=== PATIENT | female | born 1995 | race Caucasian/White ===

== ENCOUNTER → 2023-02-28 | Outpatient (CLI) | payer MEDICAID, SELFPAY ==
[2023-02-28 13:03] LABS: Absolute Lymphocyte Count 1.67 X10^3/uL (0.83-4.51); Absolute Neutrophil Count 5.4 X10^3/uL (2.0-7.7); Basophil# 0.02 X10^3/uL; Basophil% 0.3 % (0-1); Eosinophil# 0.12 X10^3/uL; Eosinophils% 1.6 % (0-5); Hematocrit 33.5 % (37-47); Hemoglobin 10.8 g/dL (12.0-15.0); Lymphocyte # 1.67 X10^3/ul (0.83-4.51); Lymphocyte % 21.9 % (19-41); Mean Corp Hgb Conc 32.2 g/dL (32-36); Mean Corpuscular Hgb 27.1 pg (27.0-32.0); Mean Platelet Vol. 9.5 fl (6.2-12.0); Monocyte# 0.39 X10^3/uL; Monocyte% 5.1 % (0-10); NRBC Flagged by Analyzer 0 % (0-5); Neutrophil # 5.39 X10^3/uL (2.7-7.7); Neutrophil % 70.7 % (47-70); Platelet Count 343 K/mm3 (150-450); RBC Distribution Width CV 13.6 % (11.6-14.6); RBC Distribution Width SD 42.1 fl (35.1-43.9); Red Blood Count 3.99 M/mm3 (4.2-5.4); White Blood Count 7.6 K/mm3 (4.4-11.0)
[2023-02-28 14:20] LABS: HIV - WCH Non-Reactive (Nonreactive); Hepatitis B Surface Antigen Non-Reactive (Nonreactive); Hepatitis C Antibody Non-Reactive (Nonreactive); Rubella IgG Reactive (Nonreactive); Syphilis Antibodies Reactive
[2023-03-01 08:32] LABS: V-Zoster IgG (Immunity) 917 index (Immune >165)
[2023-03-06 17:19] LABS: HPV Reflexed? NOT INDICATED
== END | disposition home or self-care (01) ==
PROVIDERS: PCP Pediatrics; Visit Provider Obstetrics & Gynecology
DX: Z34.82 Encounter for supervision of other normal pregnancy, second trimester (principal); A53.9 Syphilis, unspecified
CPT/HCPCS: 36415; 85025; 86703; 86762; 86780; 86787; 86803; 87086; 87088; 87340; 88175; G0145

== ENCOUNTER 2023-03-10 14:59 | Outpatient (CLI) | payer MEDICAID, SELFPAY ==
[2023-03-10 15:08] VITALS: BP 103/64; PULSE 81; RESP 16; TEMP 36.4; O2SAT 97; BMI 35.7
[2023-03-10] MEDS: Penicillin G Benzathine 2.4 MU/4 ML Syringe IM (15:24)
== END 2023-03-10 15:00 | disposition home or self-care (01) ==
PROVIDERS: PCP Pediatrics; Referring Provider Student in an Organized Health Care Education/Training Program; Visit Provider Student in an Organized Health Care Education/Training Program
DX: O98.112 Syphilis complicating pregnancy, second trimester (principal); A53.9 Syphilis, unspecified; Z3A.00 Weeks of gestation of pregnancy not specified
CPT/HCPCS: 96372

== ENCOUNTER 2023-03-21 07:47 | Outpatient (CLI) | payer MEDICAID, SELFPAY ==
[2023-03-21 08:00] VITALS: BP 95/60; PULSE 74; RESP 14; O2SAT 97; BMI 38.5
[2023-03-21] MEDS: Penicillin G Benzathine 2.4 MU/4 ML Syringe IM (08:22)
== END 2023-03-21 07:48 | disposition home or self-care (01) ==
PROVIDERS: PCP Pediatrics; Referring Provider Student in an Organized Health Care Education/Training Program; Visit Provider Student in an Organized Health Care Education/Training Program
DX: O98.112 Syphilis complicating pregnancy, second trimester (principal); A53.9 Syphilis, unspecified; Z3A.00 Weeks of gestation of pregnancy not specified
CPT/HCPCS: 96372

== ENCOUNTER 2023-03-28 10:49 | Outpatient (CLI) | payer MEDICAID, SELFPAY ==
[2023-03-28 11:00] VITALS: BP 106/60; PULSE 85; RESP 16; TEMP 35.5; O2SAT 97; BMI 39.9
[2023-03-28] MEDS: Penicillin G Benzathine 2.4 MU/4 ML Syringe IM (11:06)
== END 2023-03-28 10:50 | disposition home or self-care (01) ==
LOC: MEDOUTP 10:49
PROVIDERS: PCP Pediatrics; Referring Provider Student in an Organized Health Care Education/Training Program; Visit Provider Student in an Organized Health Care Education/Training Program
DX: O98.112 Syphilis complicating pregnancy, second trimester (principal); Z53.9 Procedure and treatment not carried out, unspecified reason; Z3A.00 Weeks of gestation of pregnancy not specified
CPT/HCPCS: 96372

== ENCOUNTER → 2023-05-02 | Outpatient (CLI) | payer MEDICAID, SELFPAY ==
[2023-05-02 14:41] LABS: Hematocrit 31.4 % (37-47); Hemoglobin 9.8 g/dL (12.0-15.0); Mean Corp Hgb Conc 31.2 g/dL (32-36); Mean Corpuscular Hgb 26.6 pg (27.0-32.0); Mean Corpuscular Volume 85.3 fL (81-99); Mean Platelet Vol. 9.4 fl (6.2-12.0); Platelet Count 345 K/mm3 (150-450); RBC Distribution Width CV 13.9 % (11.6-14.6); RBC Distribution Width SD 43.3 fl (35.1-43.9); Red Blood Count 3.68 M/mm3 (4.2-5.4); White Blood Count 10.2 K/mm3 (4.4-11.0)
[2023-05-02 15:52] LABS: Glucose Challenge Gest 1H 50g 70 mg/dL (70-140)
== END | disposition home or self-care (01) ==
PROVIDERS: PCP Pediatrics; Visit Provider Obstetrics & Gynecology
DX: Z34.92 Encounter for supervision of normal pregnancy, unspecified, second trimester (principal)
CPT/HCPCS: 36415; 82950; 85027